=== PATIENT | female | born 1980 | race Caucasian/White ===

== ENCOUNTER 2020-11-19 12:13 | Emergency (ER) | payer MEDICARE, MEDICAID ==
[~2020-11-19] VITALS: Ht 152.4 cm; Wt 85.8 kg
[~2020-11-19 12:13] MED LIST: ADDE1TAB22 PO; BENZ0.5T23 PO; CLON1TAB8 PO; COUM1TAB17 PO; DEPA500T2 PO; HALO5TA PO; IRON65TA PO; LIDO1OIN2 TOP; MINI5CAP PO; MIRA3350 PO; MSIR PO; PRIL20TA2 PO; PROM-190 PO; PROZ40CA PO; SENO8.6T5 PO; TRAZ-257 PO; VIBR100C PO; VITA-243 PO
[2020-11-19 13:25] LABS: BASO # 0.1 10^3/uL (0.0-0.2); BASO % 0.5 % (0.0-1.0); EOS # 0.1 10^3/uL (0.0-0.5); HEMATOCRIT 44.2 % (36.0-47.0); HEMOGLOBIN 14.5 g/dl (12.0-15.5); LYMPH # 2.5 10^3/uL (1.5-5.0); LYMPH % 24.3 % (24.0-44.0); MEAN CORPUSCULAR HEMOGLOBIN 27.9 pg (27.0-33.0); MEAN CORPUSCULAR HGB CONC 32.8 g/dl (32.0-36.5); MONO # 0.8 10^3/uL (0.0-0.8); MONO % 7.3 % (2.0-8.0); NEUTROPHILS # 6.8 10^3/uL (1.5-8.5); NEUTROPHILS % 66.6 % (36.0-66.0); PLATELET COUNT, AUTOMATED 282 10^3/uL (150-450); WHITE BLOOD COUNT 10.2 10^3/uL (4.0-10.0)
[2020-11-19 13:49] LABS: HCG, SERUM QUALITATIVE NEGATIVE (NEGATIVE)
[2020-11-19 14:04] LABS: ALBUMIN 4.1 GM/DL (3.2-5.2); ALT/SGPT 29 U/L (12-78); BILIRUBIN,DIRECT < 0.1 MG/DL (0.0-0.2); BILIRUBIN,TOTAL 0.3 MG/DL (0.2-1.0); BLOOD UREA NITROGEN 16 MG/DL (7-18); CALCIUM LEVEL 9.4 MG/DL (8.5-10.1); CARBON DIOXIDE LEVEL 25 MEQ/L (21-32); CHLORIDE LEVEL 108 MEQ/L (98-107); GLOMERULAR FILTRATION RATE > 60.0 (>58); GLUCOSE, FASTING 87 MG/DL (70-100); LIPASE 107 U/L (73-393); POTASSIUM SERUM 4.3 MEQ/L (3.5-5.1); SODIUM LEVEL 140 MEQ/L (136-145)
[2020-11-19] MEDS ORDERED: PROMETHAZINE INJ 25 MG/ML VIAL (J2550) IV ONE (16:55)
[2020-11-19] MEDS ORDERED: MORPHINE 2 MG/ML 1ML VIAL (J2270) IV ONE (16:55)
[2020-11-19] MEDS ORDERED: NS 1,000 ML IV ONE (16:55)
--- NOTE | 2020-11-19 18:02 | REPVR ---
PROCEDURE INFORMATION: Exam: CT Abdomen And Pelvis Without Contrast Exam date and time: 11/19/2020 4:51 PM Age: 40 years old Clinical indication: Abdominal pain; Flank; Right; Additional info: Right flank pain, vomiting, diarrhea TECHNIQUE: Imaging protocol: Computed tomography of the abdomen and pelvis without contrast. Radiation optimization: All CT scans at this facility use at least one of these dose optimization techniques: automated exposure control; mA and/or kV adjustment per patient size (includes targeted exams where dose is matched to clinical indication); or iterative reconstruction. COMPARISON: CT ABD PELVIS W/O CONTRAST 03/04/2015 4:46 AM FINDINGS: Lungs: The lung bases are unremarkable. Liver: There are no focal liver lesions. Gallbladder and bile ducts: Cholecystectomy. Pancreas: The pancreas is normal. Spleen: The spleen is unremarkable. Adrenal glands: The adrenal glands are unremarkable. Kidneys and ureters: The kidneys are unremarkable. Stomach and bowel: Although the ascending colonic wall does not appear to be thickened there does appear to be mild pericolonic stranding. Appendix: The appendix is not visualized. Intraperitoneal space: Unremarkable. No free air. No significant fluid collection. Vasculature: The aorta is unremarkable. Lymph nodes: There are multiple subcentimeter mesenteric lymph nodes in the right lower quadrant. Urinary bladder: The bladder is decompressed and therefore not well assessed. Reproductive: Unremarkable as visualized. Bones/joints: Unremarkable. No acute fracture. Soft tissues: Unremarkable. IMPRESSION: 1. No evidence of renal calculi or hydronephrosis. 2. There is right lower quadrant mesenteric lymphadenitis which may be due to colitis involving the ascending colon since there appears to be mild pericolonic soft tissue stranding. The colon is decompressed and therefore not well evaluated. Electronically signed by: Jojo Valles On 11/19/2020 18:01:44 PM
[2020-11-19] MEDS ORDERED: PROM25TA12 PO ×2 (18:36→19:54)
[2020-11-19] MEDS ORDERED: AZIT500T5 PO ×2 (18:36→19:54)
[2020-11-19 19:31] VITALS: BP 143/85
--- NOTE | 2020-11-20 09:43 | ED PDOC ---
Post-Departure Follow-Up radiology report faxed to Daya Sheehan MD Nov 20, 2020 09:43
== END 2020-11-19 19:38 | disposition home or self-care (01) ==
LOC: M ED 12:13
DX: A04.3 Enterohemorrhagic Escherichia coli infection (principal); A04.5 Campylobacter enteritis; Z91.012 Allergy to eggs; Z88.8 Allergy status to other drugs, medicaments and biological substances; Z88.6 Allergy status to analgesic agent
CPT/HCPCS: 74176; 80048; 80076; 81001; 83690; 84703; 85025; 87505; 96361; 96374; 96375; 99284; J2270